=== PATIENT | female | born 1955 | race Caucasian/White ===

== ENCOUNTER 2016-10-10 11:56 | Emergency (ER) | payer MEDICARE ==
--- NOTE | 2016-10-10 13:17 | RAD ---
CHEST - 2 VIEWS COMPARISON: None. HISTORY: Cough for 2 weeks. FINDINGS: Views: Frontal and lateral chest Lungs: Normal Heart and vessels: Normal Trachea and bronchi: Normal Mediastinum and benjie: Normal Costophrenic sulci: Normal Chest wall and bones: Incidentally noted pectus excavatum. Upper abdomen: Normal. IMPRESSION: Negative 2 view chest.
== END 2016-10-10 13:41 | disposition home or self-care (01) ==
LOC: ED 11:56
DX: J11.1 Influenza due to unidentified influenza virus with other respiratory manifestations (principal); M79.7 Fibromyalgia; C82.90 Follicular lymphoma, unspecified, unspecified site